=== PATIENT | female | born 1955 | race Caucasian/White ===

== ENCOUNTER → 2016-07-28 | Outpatient (REF) | payer OTHER ==
[~2016-07-28] MED LIST: LEVA500T PO; LIPI20TA PO; PERC5TAB6 PO; PROZ20CA11 PO; SENO8.6T10 PO; TIZA4CAP3 PO; VALT500T PO
== END ==
LOC: M SFHCWAGY 10:27
PROVIDERS: ATTEND Nurse Practitioner Women's Health
DX: Z12.4 Encounter for screening for malignant neoplasm of cervix (principal)

== ENCOUNTER → 2016-07-28 | Outpatient (CLI) | payer OTHER ==
--- NOTE | 2016-07-28 12:12 | REPMRS ---
Patient History The patient states she had a clinical breast exam in 08/09 Patient is postmenopausal and had first child at age 41. Family history of prostate cancer in father at age 50 or over and breast cancer in paternal grandmother at age 50 or over. Digital Woman Screen Mammo: July 28, 2016 - Exam #: [id number] Bilateral CC and MLO view(s) were taken. Technologist: Sona Cobb, Technologist Prior study comparison: July 27, 2015, digital woman screen mammo performed at [facility]. July 18, 2014, digital woman screen mammo performed at [facility]. FINDINGS: The breast tissue is heterogeneously dense. This may lower the sensitivity of mammography. There has been no change in the appearance of the mammogram from the prior studies. There is a moderate amount of residual fibroglandular tissue which is fairly symmetric. There is no interval development of dominant mass, areas of architectural distortion, or clustered microcalcification typical of malignancy. ASSESSMENT: BI-RADS/ACR category 1 mammogram. Negative. Recommendation Routine screening mammogram in 1 year (for women over age 40). This mammogram was interpreted with the aid of an FDA-approved computer-aided dectection system. Electronically Signed By: Tre Lopez MD 07/28/16 [id number]
== END ==
LOC: M WHC 10:30
PROVIDERS: ATTEND Nurse Practitioner Women's Health
DX: Z12.31 Encounter for screening mammogram for malignant neoplasm of breast (principal); Z78.0 Asymptomatic menopausal state; Z13.820 Encounter for screening for osteoporosis

== ENCOUNTER → 2016-09-20 | Outpatient (CLI) | payer OTHER ==
[~2016-09-20] VITALS: Ht 161.3 cm; Wt 68.0 kg
[~2016-09-20] MED LIST changes: +NS 1,000 ML IV SCH; +PROPOFOL 200 MG/20 ML VIAL As Ordered ONE
--- NOTE | 2016-09-20 14:20 | ROOR ---
Patient Name: Rama Navarro Procedure Date: 09/20/2016 2:02 PM Date of : 1955 Age: 60 Room: [facility] Gender: Female Note Status: Finalized Procedure: Colonoscopy Indications: High risk colon cancer surveillance: Personal history of colonic polyps Providers: Babar KLINE MD Referring MD: JOE WAITE MD Requesting Provider: Medicines: Monitored Anesthesia Care Complications: No immediate complications. Procedure: Pre-Anesthesia Assessment: - The heart rate, respiratory rate, oxygen saturations, blood pressure, adequacy of pulmonary ventilation, and response to care were monitored throughout the procedure. The Colonoscope was introduced through the anus and advanced to the cecum, identified by appendiceal orifice and ileocecal valve. The colonoscopy was performed without difficulty. The patient tolerated the procedure well. The quality of the bowel preparation was excellent. Findings: The perianal and digital rectal examinations were normal. (Exam: Complete, Prep: Good or Excellent.) Small Internal Hemorrhoids. The entire examined colon appeared normal on direct and retroflexion views. Impression: - Small Internal Hemorrhoids. - The entire colon is normal on direct and retroflexion views. - No specimens collected. Recommendation: - Repeat colonoscopy in 10 years for screening purposes. Babar Kline MD Babar KLINE MD 09/20/2016 2:19:57 PM This report has been signed electronically. Number of Addenda: 0 Note Initiated On: 09/20/2016 2:02 PM Estimated Blood Loss: Estimated blood loss: none.
[2016-09-20 14:51] VITALS: BP 128/67
== END | disposition home or self-care (01) ==
LOC: M OPP 11:59
PROVIDERS: ATTEND Internal Medicine Gastroenterology
DX: Z12.11 Encounter for screening for malignant neoplasm of colon (principal); Z86.010 Personal history of colon polyps; K64.8 Other hemorrhoids; E78.00 Pure hypercholesterolemia, unspecified; F41.9 Anxiety disorder, unspecified; Z79.899 Other long term (current) drug therapy

== ENCOUNTER → 2017-01-20 | Outpatient (CLI) | payer OTHER ==
[~2017-01-20] MED LIST changes: +LEVA1TAB2 PO; -LEVA500T PO; -NS 1,000 ML IV SCH; +PERC5TAB12 PO; -PERC5TAB6 PO; -PROPOFOL 200 MG/20 ML VIAL As Ordered ONE
== END ==
LOC: M WUC 14:06
PROVIDERS: ATTEND Physician Assistant
DX: Z02.1 Encounter for pre-employment examination (principal)

== ENCOUNTER → 2017-02-20 | Outpatient (REF) | payer OTHER | LOC: M LAB REF 19:41 | PROVIDERS: ATTEND Physician Assistant | DX: J02.9 Acute pharyngitis, unspecified (principal) ==

== ENCOUNTER → 2017-07-31 | Outpatient (CLI) | payer OTHER | LOC: M WHC 10:17 | DX: Z12.31 Encounter for screening mammogram for malignant neoplasm of breast (principal) | CPT/HCPCS: 77067 ==

== ENCOUNTER → 2017-07-31 | Outpatient (REF) | payer OTHER | LOC: M SFHCWAGY 10:26 | DX: Z12.4 Encounter for screening for malignant neoplasm of cervix (principal) | CPT/HCPCS: 88142 ==

== ENCOUNTER → 2018-07-02 | Outpatient (CLI) | payer OTHER ==
[2018-07-02 17:43] LABS: ALBUMIN 4.1 GM/DL (3.2-5.2); ALBUMIN/GLOBULIN RATIO 1.32 (1.00-1.93); ALKALINE PHOSPHATASE 70 U/L (45-117); ALT/SGPT 21 U/L (12-78); ANION GAP 6 MEQ/L (8-16); AST/SGOT 16 U/L (7-37); BILIRUBIN,TOTAL 0.4 MG/DL (0.2-1.0); BLOOD UREA NITROGEN 19 MG/DL (7-18); CALCIUM LEVEL 8.9 MG/DL (8.8-10.2); CARBON DIOXIDE LEVEL 30 MEQ/L (21-32); CHLORIDE LEVEL 103 MEQ/L (98-107); CHOLESTEROL LEVEL 198 MG/DL (<200); CREATININE FOR GFR 0.68 MG/DL (0.55-1.30); GLOMERULAR FILTRATION RATE > 60.0 (>45); GLUCOSE, FASTING 89 MG/DL (70-100); HDL CHOLESTEROL 75 MG/DL (>40); LDL CHOLESTEROL 105 MG/DL (<100); NON-HDL-C 123 MG/DL; POTASSIUM SERUM 4.7 MEQ/L (3.5-5.1); SODIUM LEVEL 139 MEQ/L (136-145); TOTAL PROTEIN 7.2 GM/DL (6.4-8.2); TRIGLYCERIDES LEVEL 90 MG/DL (<150)
== END ==
LOC: M WUC 12:01
DX: E78.5 Hyperlipidemia, unspecified (principal); F41.9 Anxiety disorder, unspecified
CPT/HCPCS: 84443

== ENCOUNTER → 2018-08-01 | Outpatient (CLI) | payer OTHER ==
[~2018-08-01] MED LIST changes: +TIZA4CAP PO; -TIZA4CAP3 PO
--- NOTE | 2018-08-01 13:23 | REPMRS ---
Patient History The patient states she had a clinical breast exam in 07/2018. Patient is postmenopausal and had first child at age 41. Family history of breast cancer at age 50 or over in paternal grandmother, prostate cancer at age 50 or over in father, breast cancer at age 83 in mother. No Hormone Replacement Therapy Digital Woman Screen Mammo: August 01, 2018 - Exam #: [id number] Bilateral CC and MLO view(s) were taken. Technologist: Felisha Peterson, Technologist Prior study comparison: July 31, 2017, digital woman screen mammo performed at [facility]. July 28, 2016, digital woman screen mammo performed at [facility]. July 27, 2015, digital woman screen mammo performed at [facility]. FINDINGS: The breast tissue is heterogeneously dense. This may lower the sensitivity of mammography. There is a moderate amount of heterogeneously dense fibroglandular tissue which is fairly symmetric. There is no interval development of dominant mass, architectural distortion, or clustered microcalcification typical of malignancy. There has been no change in the appearance of the mammogram from the prior studies. 3-D tomosynthesis shows no additional findings. Assessment: BI-RADS/ACR category 1 mammogram. Negative. Recommendation Breast MRI of both breasts in 6 months. Routine screening mammogram of both breasts in 1 year (for women over age 40). This patient's Lifetime Breast Cancer RIsk is estimated at 23.5 %. Annual screening Breast MRI scanniing is recommended for patient's whose lifetime risk assessment is over 20%. This mammogram was interpreted with the aid of an FDA-approved computer-aided dectection system. Electronically Signed By: Bigg Hernandez MD 08/01/18 [id number]
== END ==
LOC: M WHC 10:18
PROVIDERS: ATTEND Nurse Practitioner Women's Health
DX: Z12.31 Encounter for screening mammogram for malignant neoplasm of breast (principal); Z78.0 Asymptomatic menopausal state; Z80.3 Family history of malignant neoplasm of breast

== ENCOUNTER → 2019-03-06 | Outpatient (CLI) | payer OTHER ==
[2019-03-06 15:53] LABS: BLOOD UREA NITROGEN 16 MG/DL (7-18); CARBON DIOXIDE LEVEL 28 MEQ/L (21-32); CHLORIDE LEVEL 106 MEQ/L (98-107); CREATININE FOR GFR 0.63 MG/DL (0.55-1.30); GLOMERULAR FILTRATION RATE > 60.0 (>45); GLUCOSE, FASTING 118 MG/DL (70-100); POTASSIUM SERUM 4.1 MEQ/L (3.5-5.1); SODIUM LEVEL 141 MEQ/L (136-145)
== END ==
LOC: M WUC 10:43
PROVIDERS: ATTEND Nurse Practitioner Women's Health
DX: Z01.812 Encounter for preprocedural laboratory examination (principal)

== ENCOUNTER → 2019-03-11 | Outpatient (CLI) | payer OTHER ==
[~2019-03-11] MED LIST changes: +PROHANCE 279.3MG/ML 15ML VIAL (A9576) As Ordered ONE
--- NOTE | 2019-03-12 10:15 | REP ---
Bilateral breast MRI study without and with IV gadolinium: History: Family history of breast malignancy. High-risk breast cancer screening. Dense breast tissue on mammography. Comparison mammography August 01, 2018. Technique: 3 Mirna MRI imaging was performed with a dedicated breast coil. Axial, coronal, and sagittal T1 and T2-weighted scans were obtained with and without fat saturation in the usual fashion. The study includes dynamically acquired post gadolinium enhanced imaging subtraction imaging. Maximal intensity projection and multiplanar re-formation imaging is included as well. The study was interpreted with the aid of [employer], an FDA approved computer-aided detection (CAD) software program, on a dedicated breast MRI work station. The gadolinium enhancement dose is 13 mL of intravenous ProHance. Findings: There is moderate fibroglandular tissue pattern bilaterally corresponding with the dense breast seen mammographically. There is only minimal background parenchymal enhancement. No axillary adenopathy or significant breast cystic changes seen on either side. High-resolution pre and postcontrast T1 and T2-weighted scans show no suspicious morphologic abnormality in either breast. Dynamically acquired sequential post contrast images show no suspicious area of enhancement and/or washout in either breast to suggest malignancy. Subtraction images are unremarkable. Impression: BI-RADS category 1 negative bilateral breast MRI study. Repeat breast MRI study recommended in 1 year. Electronically Signed by Addi Hernandez MD 03/12/2019 07:09 P
== END ==
LOC: M RAD 15:08
PROVIDERS: ATTEND Nurse Practitioner Women's Health
DX: Z80.9 Family history of malignant neoplasm, unspecified (principal)
CPT/HCPCS: A9576; C8908

== ENCOUNTER → 2019-08-02 | Outpatient (CLI) | payer OTHER ==
[~2019-08-02] MED LIST changes: -PROHANCE 279.3MG/ML 15ML VIAL (A9576) As Ordered ONE
--- NOTE | 2019-08-02 13:32 | REPMRS ---
Patient History The patient states she had a clinical breast exam in 2019. Family history of breast cancer at age 50 or over in paternal grandmother, prostate cancer at age 50 or over in father, breast cancer at age 83 in mother. No Hormone Replacement Therapy Digital Woman Screen Mammo: August 02, 2019 - Exam #: [id number] Bilateral CC and MLO view(s) were taken. Technologist: Nilam Love, Technologist Prior study comparison: August 01, 2018, bilateral digital woman screen mammo performed at [facility]. [facility] 31, 2017[facility], 2016[facility] FINDINGS: The breast tissue is heterogeneously dense. This may lower the sensitivity of mammography. There is a moderate amount of heterogeneously dense fibroglandular tissue which is fairly symmetric. There is no interval development of dominant mass, architectural distortion, or grouped microcalcification typical of malignancy. There has been no change in the appearance of the mammogram from the prior studies. 3-D tomosynthesis shows no additional findings. Assessment: BI-RADS/ACR category 1 mammogram. Negative Mammogram. Recommendation Breast MRI of both breasts in 6 months. Routine screening mammogram of both breasts in 1 year (for women over age 40). This patient's Lifetime Breast Cancer RIsk is estimated at 22.8 %. Annual screening Breast MRI scanniing is recommended for patient's whose lifetime risk assessment is over 20%. This mammogram was interpreted with the aid of an FDA-approved computer-aided dectection system. Electronically Signed By: Bigg Hernandez MD 08/02/19 [id number]
== END ==
LOC: M WHC 10:47
PROVIDERS: ATTEND Nurse Practitioner Women's Health
DX: Z12.31 Encounter for screening mammogram for malignant neoplasm of breast (principal)

== ENCOUNTER → 2019-08-08 | Outpatient (CLI) | payer OTHER ==
[2019-08-08 16:36] LABS: ALT/SGPT 24 U/L (12-78); BILIRUBIN,TOTAL 0.5 MG/DL (0.2-1.0); BLOOD UREA NITROGEN 14 MG/DL (7-18); CALCIUM LEVEL 9.3 MG/DL (8.8-10.2); CARBON DIOXIDE LEVEL 30 MEQ/L (21-32); CHLORIDE LEVEL 106 MEQ/L (98-107); CHOLESTEROL LEVEL 183 MG/DL (<200); CHOLESTEROL RISK RATIO 2.376 (<5); CREATININE FOR GFR 0.66 MG/DL (0.55-1.30); GLOMERULAR FILTRATION RATE > 60.0 (>45); GLUCOSE, FASTING 94 MG/DL (70-100); HDL CHOLESTEROL 77 MG/DL (>40); LDL CHOLESTEROL 85 MG/DL (<100); NON-HDL-C 106 MG/DL; POTASSIUM SERUM 4.5 MEQ/L (3.5-5.1); SODIUM LEVEL 142 MEQ/L (136-145); TOTAL PROTEIN 7.4 GM/DL (6.4-8.2); TRIGLYCERIDES LEVEL 104 MG/DL (<150)
== END ==
LOC: M WUC 11:53
PROVIDERS: ATTEND Internal Medicine
DX: E78.5 Hyperlipidemia, unspecified (principal)

== ENCOUNTER 2019-09-30 23:24 | Emergency (ER) | payer OTHER ==
[~2019-09-30] VITALS: Ht 160 cm; Wt 69.5 kg
--- NOTE | 2019-10-01 00:42 | REPVR ---
PROCEDURE INFORMATION: Exam: CT Head Without Contrast Exam date and time: 09/30/2019 11:46 PM Age: 63 years old Clinical indication: Numbness / parasthesia; Left; Patient HX: Dental pain; Additional info: Lips numb left side TECHNIQUE: Imaging protocol: Computed tomography of the head without contrast. Axial and coronal reformatted images were created and reviewed. Radiation optimization: All CT scans at this facility use at least one of these dose optimization techniques: automated exposure control; mA and/or kV adjustment per patient size (includes targeted exams where dose is matched to clinical indication); or iterative reconstruction. COMPARISON: CT Head without contrast 09/30/2014 6:19 PM FINDINGS: Brain: No CT evidence of acute intracranial hemorrhage or acute territorial infarction. No significant mass effect or midline shift. Basal cisterns patent. Ventricles: Normal in size and configuration. Bones/joints: No acute osseous abnormality. Sinuses: Minimal ethmoid and mild left maxillary sinus mucosal thickening. Mastoid air cells: Grossly unremarkable. Soft tissues: Grossly unremarkable. IMPRESSION: 1. No CT evidence of acute intracranial pathology. 2. Additional findings, as above. Electronically signed by: Herbie Hood On 10/01/2019 00:42:02 AM
[2019-10-01] MEDS ORDERED: carBAMazepine 100 MG *1/2* TAB PO ONE (01:00)
[2019-10-01 02:45] VITALS: BP 146/72
[2019-10-01] MEDS ORDERED: CARB10TACH PO (03:08)
== END 2019-10-01 03:23 | disposition home or self-care (01) ==
LOC: M ED 23:24
DX: G50.0 Trigeminal neuralgia (principal); E78.5 Hyperlipidemia, unspecified; F32.9 Major depressive disorder, single episode, unspecified; F41.9 Anxiety disorder, unspecified; Z79.899 Other long term (current) drug therapy

== ENCOUNTER → 2020-01-14 | Outpatient (REF) | payer OTHER ==
[~2020-01-14] MED LIST changes: +CARB10TACH PO
== END ==
LOC: M LAB REF 17:15
PROVIDERS: ATTEND Physician Assistant
DX: D04.39 Carcinoma in situ of skin of other parts of face (principal)

== ENCOUNTER → 2020-07-03 | Outpatient (CLI) | payer OTHER ==
[~2020-07-03] MED LIST changes: +PROHANCE 279.3MG/ML 15ML VIAL As Ordered ONE
--- NOTE | 2020-07-03 12:52 | REP ---
INDICATION: DENSE BREAST, FAMILY HISTORY. COMPARISON: Comparison breast MRI study March 11, 2019. Comparison mammography August 02, 2019. TECHNIQUE: Three Mirna MRI imaging was performed with a dedicated breast coil. Axial, coronal, and sagittal T1 and T2 weighted scans were obtained with and without fat saturation in the usual fashion. The study includes dynamically acquired post gadolinium-enhanced imaging with image subtraction. Maximum intensity projection and multi planar reformation imaging is included as well. This study is interpreted with the aid of [employer], an FDA approved computer aided detection (CAD) software program, on a dedicated breast MRI workstation. The gadolinium enhancement dose is 13 mL of intravenous ProHance. FINDINGS: There is a moderate pattern of fibroglandular tissue bilaterally. There is mild background parenchymal enhancement. There is no evidence of axillary lymphadenopathy or significant breast cystic change. High-resolution T1 and T2 weighted scans show no suspicious morphologic abnormality in either breast either before after contrast. No suspicious area of enhancement and washout is seen on dynamically acquired sequential postcontrast images. Subtraction images show no additional abnormality. IMPRESSION: Stable BI-RADS category 1-findings. Repeat screening breast MRI study recommended in 1 year. Annual screening mammography should continue as well. <Electronically signed by Bigg Hernandez > 07/03/20 [id number]
== END ==
LOC: M RAD 08:15
PROVIDERS: ATTEND Nurse Practitioner Women's Health
DX: R92.2 Inconclusive mammogram (principal); Z80.3 Family history of malignant neoplasm of breast
CPT/HCPCS: A9576; C8908

== ENCOUNTER → 2020-08-27 | Outpatient (REF) | payer OTHER ==
[~2020-08-27] MED LIST changes: -PROHANCE 279.3MG/ML 15ML VIAL As Ordered ONE
== END ==
LOC: M SFHCWAGY 16:45
PROVIDERS: ATTEND Nurse Practitioner Women's Health
DX: Z12.4 Encounter for screening for malignant neoplasm of cervix (principal); Z01.419 Encounter for gynecological examination (general) (routine) without abnormal findings

== ENCOUNTER 2020-10-28 18:12 | Observation (INO) | payer OTHER ==
[~2020-10-28] VITALS: Ht 160 cm; Wt 68.4 kg
--- NOTE | 2020-10-28 19:02 | REPVR ---
PROCEDURE INFORMATION: Exam: CT Head Without Contrast Exam date and time: 10/28/2020 6:35 PM Age: 64 years old Clinical indication: Pain; Headache; Additional info: Head injury TECHNIQUE: Imaging protocol: Computed tomography of the head without contrast. Radiation optimization: All CT scans at this facility use at least one of these dose optimization techniques: automated exposure control; mA and/or kV adjustment per patient size (includes targeted exams where dose is matched to clinical indication); or iterative reconstruction. COMPARISON: CT Head without contrast 09/30/2019 11:50 PM FINDINGS: Brain: No acute intracranial hemorrhage, cerebral edema, or midline shift. Cerebral ventricles: No hydrocephalus. Bones/joints: No acute fracture. Paranasal sinuses: There is a mucus retention cyst or polyp within the right maxillary sinus. Mastoid air cells: The mastoid air cells are clear. Orbital cavity: Unremarkable as visualized. Soft tissues: Unremarkable. IMPRESSION: No acute intracranial abnormality. Electronically signed by: Adams Rooney On 10/28/2020 19:02:38 PM
--- NOTE | 2020-10-28 19:05 | REPVR ---
PROCEDURE INFORMATION: Exam: CT Cervical Spine Without Contrast Exam date and time: 10/28/2020 6:35 PM Age: 64 years old Clinical indication: Injury or trauma; Fall; Blunt trauma; Additional info: Head injury TECHNIQUE: Imaging protocol: Computed tomography images of the cervical spine without contrast. Radiation optimization: All CT scans at this facility use at least one of these dose optimization techniques: automated exposure control; mA and/or kV adjustment per patient size (includes targeted exams where dose is matched to clinical indication); or iterative reconstruction. COMPARISON: CT Spine,cervical w/o contrast 09/30/2014 6:19 PM FINDINGS: Bones/joints: There is no acute fracture of the cervical spine.There is straightening of the normal cervical lordosis. Other bones: There are acute fractures involving the right 1st and 3rd ribs. Discs/Spinal canal/Neural foramina: Moderate degenerative changes of the cervical spine are present. There is no severe spinal canal stenosis. Multilevel neural foraminal narrowing from uncinate spurring and facet arthropathy is noted. Thyroid: A 2.5 cm right thyroid nodule is noted. Further evaluation with a thyroid ultrasound is recommended. Lungs: Lung apices are normal. Pleural spaces: A tiny left apical pneumothorax is present. Soft tissues: Unremarkable. IMPRESSION: 1. No acute fracture of the cervical spine 2. Acute fractures involving the right 1st and 3rd ribs 3. Tiny left apical pneumothorax COMMENTS: Consistent with the [employer]'s Incidental Findings Committee white paper (J Am Cassandra Radiol 2015): In patients aged 35 years and older with an incidental thyroid nodule equal to or greater than 1.[address], MRI or extrathyroidal US, further evaluation with dedicated thyroid US is recommended for patients with normal life expectancy and without comorbidities. For smaller nodules without suspicious features, no further evaluation or follow up is recommended. Electronically signed by: Adams Rooney On 10/28/2020 19:05:40 PM
[2020-10-28] MEDS ORDERED: ONDANSETRON 4MG/2ML VIAL IV ONE (19:30)
[2020-10-28] MEDS ORDERED: MORPHINE 2 MG/ML 1ML VIAL (J2270) IV ONE (19:30)
[2020-10-28] MEDS: NS 1,000 ML IV SCH (19:56)
[2020-10-28 19:58] LABS: BASO % 0.2 % (0.0-1.0); HEMATOCRIT 37.7 % (36.0-47.0); HEMOGLOBIN 12.2 g/dl (12.0-15.5); LYMPH % 6.6 % (24.0-44.0); MEAN CORPUSCULAR HEMOGLOBIN 29.6 pg (27.0-33.0); MEAN CORPUSCULAR HGB CONC 32.4 g/dl (32.0-36.5); MEAN CORPUSCULAR VOLUME 91.5 fl (80.0-96.0); MONO # 0.7 10^3/uL (0.0-0.8); MONO % 4.5 % (2.0-8.0); NEUTROPHILS # 12.8 10^3/uL (1.5-8.5); NEUTROPHILS % 87.9 % (36.0-66.0); PLATELET COUNT, AUTOMATED 255 10^3/uL (150-450); RED BLOOD COUNT 4.12 10^6/uL (4.00-5.40); WHITE BLOOD COUNT 14.5 10^3/uL (4.0-10.0)
[2020-10-28] MEDS ORDERED: ISOVUE-370 76% 100ML VIAL As Ordered ONE (20:12)
[2020-10-28 20:33] LABS: CK-MB VALUE MASS 10.7 NG/ML (<3.6); CPK CREATINE PHOSPHOKINASE 467 U/L (26-192); MB/CK RELATIVE INDEX 2.29 (< OR =4); TROPONIN I < 0.02 NG/ML (< 0.10)
--- NOTE | 2020-10-28 21:15 | REPVR ---
PROCEDURE INFORMATION: Exam: CT Abdomen And Pelvis With Contrast Exam date and time: 10/28/2020 8:24 PM Age: 64 years old Clinical indication: Abdominal pain; Generalized; Additional info: Trauma TECHNIQUE: Imaging protocol: Computed tomography of the abdomen and pelvis with contrast. Radiation optimization: All CT scans at this facility use at least one of these dose optimization techniques: automated exposure control; mA and/or kV adjustment per patient size (includes targeted exams where dose is matched to clinical indication); or iterative reconstruction. Contrast material: ISOVUE 370; Contrast volume: 100 ml; Contrast route: INTRAVENOUS (IV); COMPARISON: No relevant prior studies available. FINDINGS: Liver: Normal. No mass. Gallbladder and bile ducts: There are multiple small calculi in the gallbladder and cystic duct. No gallbladder wall thickening or pericholecystic fluid. No biliary duct dilation. Pancreas: Normal. No ductal dilation. Spleen: Normal. No splenomegaly. Adrenal glands: Normal. No mass. Kidneys and ureters: Incidental peripelvic cysts in the left kidney left kidney. Kidneys are otherwise unremarkable. No hydronephrosis. Stomach and bowel: Unremarkable. No obstruction. No mucosal thickening. Appendix: No evidence of appendicitis. Intraperitoneal space: Unremarkable. No free air. No significant fluid collection. Vasculature: Unremarkable. No abdominal aortic aneurysm. Lymph nodes: Unremarkable. No enlarged lymph nodes. Urinary bladder: Unremarkable as visualized. Reproductive: Unremarkable as visualized. Bones/joints: There are degenerative changes in the spine and pelvis. Soft tissues: Unremarkable. IMPRESSION: 1. No acute findings. 2. Cholelithiasis. No biliary duct dilation. COMMENTS: Consistent with the [place] [employer]'s Incidental Findings Committee white paper (J Am Cassandra Radiol 2018): Any incidental renal lesion less than 1 cm or classified as too small to characterize, or any incidental cystic renal lesion characterized as simple-appearing, is likely benign. No follow-up imaging is recommended for these lesions per consensus recommendations based on imaging criteria. Electronically signed by: Reinier Dale On 10/28/2020 21:15:57 PM
--- NOTE | 2020-10-28 21:23 | REPVR ---
PROCEDURE INFORMATION: Exam: CT Chest With Contrast; Diagnostic Exam date and time: 10/28/2020 8:24 PM Age: 64 years old Clinical indication: Injury or trauma; Fall; Blunt trauma (contusions or hematomas) TECHNIQUE: Imaging protocol: Diagnostic computed tomography of the chest with contrast. Radiation optimization: All CT scans at this facility use at least one of these dose optimization techniques: automated exposure control; mA and/or kV adjustment per patient size (includes targeted exams where dose is matched to clinical indication); or iterative reconstruction. Contrast material: ISOVUE 370; Contrast volume: 100 ml; Contrast route: INTRAVENOUS (IV); COMPARISON: CT Chest with contrast 09/30/2014 6:22 PM FINDINGS: Thyroid: Nodules in the right lobe of the thyroid gland are not significantly changed. Lungs: Unremarkable. No consolidation. No masses. Pleural spaces: There is a tiny left apical pneumothorax. No pleural effusion. Heart: Unremarkable. No cardiomegaly. No pericardial effusion. Aorta: Unremarkable. No aortic aneurysm. Lymph nodes: Unremarkable. No enlarged lymph nodes. Bones/joints: There are nondisplaced fractures of the right 2nd and 3rd posterior ribs. Soft tissues: Unremarkable. IMPRESSION: 1. Tiny left apical pneumothorax. 2. Right 2nd and 3rd posterior rib fractures. 3. Stable right thyroid nodule. COMMENTS: Consistent with the [place] [employer]'s Incidental Findings Committee white paper (J Am Cassandra Radiol 2015): In patients aged 35 years and older with an incidental thyroid nodule equal to or greater than 1.[address], MRI or extrathyroidal US, further evaluation with dedicated thyroid US is recommended for patients with normal life expectancy and without comorbidities. For smaller nodules without suspicious features, no further evaluation or follow up is recommended. Electronically signed by: Reinier Dale On 10/28/2020 21:23:40 PM
[2020-10-28] MEDS ORDERED: LIDOCAINE W/EPINEPHRINE 1% 20ML VIAL SC ONE (21:30)
[2020-10-28] MEDS ORDERED: CEPHALEXIN 500 MG CAP PO ONE (22:45)
--- NOTE | 2020-10-28 23:29 | REPVR ---
PROCEDURE INFORMATION: Exam: XR Left Finger(s) Exam date and time: 10/28/2020 11:01 PM Age: 64 years old Clinical indication: Pain; Finger(s); Left; Additional info: Left index only, trauma TECHNIQUE: Imaging protocol: XR Left fingers. Views: Minimum 2 views. COMPARISON: CR HAND COMPLETE 12/16/2015 6:31 PM FINDINGS: Bones/joints: There is advanced osteoarthritis in the fingers. Mildly displaced fracture of the dorsal base of the index finger distal phalanx. No other fracture is seen. Normal alignment. Soft tissues: Mild soft tissue swelling. IMPRESSION: 1. Mildly displaced intra-articular fracture of the dorsal base of the index finger distal phalanx. 2. Soft tissue swelling. 3. Osteoarthritis. Electronically signed by: Reinier Dale On 10/28/2020 23:29:36 PM
--- NOTE | 2020-10-28 23:31 | REPVR ---
PROCEDURE INFORMATION: Exam: XR Left Elbow Exam date and time: 10/28/2020 11:01 PM Age: 64 years old Clinical indication: Pain; Elbow; Left; Additional info: Trauma, fell off a horse. TECHNIQUE: Imaging protocol: XR Left elbow. Views: 3 or more views. COMPARISON: No relevant prior studies available. FINDINGS: Bones/joints: There is a small elbow joint effusion. No displaced fracture is seen. Normal alignment. Soft tissues: Unremarkable. IMPRESSION: 1. Small joint effusion. 2. No displaced fracture is seen. Electronically signed by: Reinier Dale On 10/28/2020 23:32:12 PM
[2020-10-28] MEDS ORDERED: ONDANSETRON 4MG/2ML VIAL IV PRN (23:45)
[2020-10-28] MEDS ORDERED: ACETAMINOPHEN TAB 650MG DOSE (2X325MG) PO PRN (23:45)
[2020-10-28] MEDS ORDERED: NORCO, ANEXSIA 5/325MG TABLET (HYDROcodone/ACETAMINOPHEN) PO PRN (23:45)
[2020-10-29] MEDS ORDERED: CENT1TAB9 PO (00:02)
[2020-10-29] MEDS: NS 1,000 ML IV SCH ×2 (01:24→11:47)
[2020-10-29] MEDS: IBUPROFEN 400MG TAB PO PRN ×2 (01:27→10:34)
--- NOTE | 2020-10-29 01:31 | ECGEPIP ---
[facility] - ED Test Date: 2020-10-28 Pat Name: HALEY DARNELL Department: Room: - Gender: Female [employer] Assembler: VANNESA : 1955 Requested By: Gabriel Dave Order Number: [id number] Reading MD: Gabriel Chavira Measurements Intervals [place] Rate: 73 P: 28 CO: 134 QRS: 25 QRSD: 88 T: 42 QT: 416 QTc: 458 Interpretive Statements Normal sinus rhythm Minimal voltage criteria for LVH, may be normal variant ( [employer] product ) Nonspecific ST and T wave abnormality NO PRIORS FOR COMPARISON Electronically Signed on 10-29-2020 1:31:20 EDT by Gabriel Chavira
[2020-10-29 06:00] VITALS: BP 119/60
[2020-10-29] MEDS: CEPHALEXIN 500 MG CAP PO SCH ×2 (06:07→11:47)
[2020-10-29 07:38] LABS: BASO % 0.1 % (0.0-1.0); EOS % 0.1 % (0.0-3.0); HEMOGLOBIN 10.6 g/dl (12.0-15.5); LYMPH # 1.4 10^3/uL (1.5-5.0); LYMPH % 18.3 % (24.0-44.0); MEAN CORPUSCULAR HEMOGLOBIN 29.9 pg (27.0-33.0); MEAN CORPUSCULAR HGB CONC 32.1 g/dl (32.0-36.5); MEAN CORPUSCULAR VOLUME 93.2 fl (80.0-96.0); MONO # 0.6 10^3/uL (0.0-0.8); MONO % 7.2 % (2.0-8.0); NEUTROPHILS # 5.7 10^3/uL (1.5-8.5); PLATELET COUNT, AUTOMATED 218 10^3/uL (150-450); RED BLOOD COUNT 3.54 10^6/uL (4.00-5.40); WHITE BLOOD COUNT 7.7 10^3/uL (4.0-10.0)
--- NOTE | 2020-10-29 08:16 | REP ---
INDICATION: follow possible left pneumothorax. COMPARISON: Chest CT dated 10/28/2020 TECHNIQUE: Single upright PA view of the chest. FINDINGS: Upon review of the comparison CT there is a tiny barely visible pneumothorax in the left apex anteriorly. On the plain film study today there is no visible pneumothorax on the left or the right. There is no hemothorax or pulmonary contusion. There are old healed left rib fractures. No other rib fractures are identified on the plain film study today. Cardiac size is normal. The fiordaliza and mediastinum are unremarkable. IMPRESSION: Essentially negative single AP view of the chest. No pneumothorax is identified, as discussed above. There is no hemothorax or pulmonary contusion. No rib fractures are identified. Cardiac size is normal. The lung potter are otherwise clear. <Electronically signed by Tre Feliciano > 10/29/20 0829
[2020-10-29] MEDS ORDERED: BACITRACIN OINTMENT 30GM TUBE TOP SCH (09:00)
--- NOTE | 2020-10-29 09:26 | HPE ---
HISTORY AND PHYSICAL DATE OF ADMISSION: 10/28/2020 The patient was placed on observation status on the October. REASON FOR OBSERVATION: Right rib fractures and small left pneumothorax status post fall. HISTORY OF PRESENT ILLNESS: The patient is a pleasant 64-year-old woman who was riding a horse in a riding arena on the afternoon of the 28 of October at about 4 p.m. She reports that while she was riding, the horse spooked and she was thrown from the horse at a height of approximately 5-6 feet. She reports landing on the dirt floor of the arena with the right side of her face and shoulder coming down first. She denies any loss of consciousness. She reports that the wind was knocked out of her and she lay there for a few minutes before she got up. She complains of pain in the right shoulder posteriorly below the shoulder blade. She has also noticed some swelling of her left index finger and had lacerations of her right ear and left elbow. She underwent evaluation with x-rays and laboratory studies in the emergency department. The CT scan of the neck and chest show fractures of the right 1st and 3rd ribs as well as a possible very small pneumothorax at the apex of the left lung. The patient is now placed on observation for pain control and monitoring of her condition to be watchful for any as yet undiagnosed injuries and to obtain a followup chest x-ray to assess possible expansion of her pneumothorax. ALLERGIES: The patient has no known drug allergies. MEDICATIONS: Include atorvastatin, fluoxetine, a multivitamin and Valtrex. SURGICAL HISTORY: Significant for a section many years ago. She has had a skin cancer removed from the face. MEDICAL HISTORY: Significant for some hypercholesterolemia. She has a distant history of renal stones. She has had some osteoarthritis. She has a history of some anxiety and panic disorder. SOCIAL HISTORY: The patient is . She denies any smoking and drinks alcohol infrequently. FAMILY HISTORY: Noncontributory. REVIEW OF SYSTEMS: Reveals no history of chest pain or palpitations. She denies shortness of breath, cough or wheezing. She denies dysuria or hematuria. She has no history of melena, hematochezia, hepatitis, pancreatitis or jaundice. There is no history of peptic ulcer disease. She has no history of deep vein thrombosis (DVT) or pulmonary embolus. PHYSICAL EXAMINATION: Physical examination in the emergency department revealed that her most recent temperature was 97.4. Her most recent vital signs showed a pulse of 61, blood pressure of 159/69 and her pulse oximetry on room air was 96%. The patient is sitting up on the stretcher looking quite comfortable at the moment. She reports her pain is about a 5/10. Skin is warm and dry. She has a small amount of dried blood on the right side of the neck and a sutured laceration at the top of the right ear about 2 cm in length. The sclerae are anicteric. There is no evidence of facial fracture. The jaw is stable. The neck is without swelling. She has no cervical bruits. Clavicles are intact and nontender to palpation. Heart examination shows a regular rate and rhythm. The lungs are clear to auscultation bilaterally. She has a roughly 1.5 cm sutured laceration at the tip of her left elbow. She has some swelling of the index finger of the left hand particularly around the proximal interphalangeal joint. There are no other evident abnormalities of the hands or fingers. She has palpable radial pulses bilaterally. Abdomen shows no evidence of trauma. She has bowel sounds present and the abdomen is soft and nontender. The pelvis is stable to compression. She has a bruised area on the left martínez about 10-12 cm in diameter. There is no evidence of any skin break or bony injury. She has dorsalis pedis pulses bilaterally. LABORATORY STUDIES: Include a CBC showing a white count of 14, hemoglobin 12, hematocrit 38 and a platelet count of 255,000. Differential count shows 88% neutrophils, 7% lymphocytes and 4% monocytes. Chemistry profile: She had a CK of 467 with a troponin of less than 0.02. She had a [id number] medical profile that showed sodium 140, potassium 3.6, chloride 101, CO2 of 28, BUN of 20, creatinine 0.7 and a glucose of 111. Hematocrit was 39%. Respiratory panel was negative for COVID-19. IMAGING: She had a CT scan of the head, CT scan of the cervical spine, CT scan of the chest, and a CT scan of the abdomen and pelvis. The head CT showed no evidence of injury. The cervical spine CT showed fractures of the right 1st and 3rd ribs with a suggestion of a possible minimal, small bubble of air in the left lung apex. Her abdominal CT showed multiple gallstones with no gallbladder wall thickening or pericholecystic fluid. There was no evidence of any intraabdominal trauma. There was no free air or free fluid, and no evidence of solid organ injury. Her CT scan of the chest revealed a tiny left apical pneumothorax with right ____ and 3rd posterior rib fractures, and a stable right thyroid nodule. She has subsequently an x-ray of the left index finger and the left elbow with reports currently pending. IMPRESSION: 1. Possible tiny left apical pneumothorax. 2. Fractures, right 1st and 3rd ribs posteriorly. 3. Laceration of right ear and left elbow. 4. Possible fracture, left index finger. 5. Hyperlipidemia. PLAN: The patient will be placed on observation status tonight. She will be provided with oral pain medications as needed. She will be allowed to take a diet if she so desires. She will be allowed out of bed with assistance. A repeat chest x-ray will be obtained in the morning to follow up on her tiny apical pneumothorax on the left. We will change her wound dressings daily with some bacitracin ointment. I will also keep her on some Keflex for now for coverage of the wounds that were closed.
[2020-10-29 10:00] VITALS: BP 117/59
[2020-10-29 14:00] VITALS: BP 126/62
[2020-10-29] MEDS ORDERED: CEPH500C PO (16:59)
[2020-10-29 18:00] VITALS: BP 133/64
--- NOTE | 2020-10-29 22:14 | IPN ---
PROGRESS NOTE DATE: 10/29/2020 HISTORY: The patient was thrown from a horse late yesterday afternoon and was brought to the Emergency Department after this fall. She was found to have fractures of the right first and third ribs posteriorly. She had a possible tiny left apical pneumothorax. She had a small fracture in her left index finger with some swelling as well as a laceration of her left elbow and her right ear. She was admitted on observation overnight to obtain a chest x-ray today. She reports that she feels sore but has been taking only some Tylenol for her discomfort. She did have one dose of Ibuprofen earlier in the day. She has been eating well and voiding without difficulty. Vital signs show that she has been afebrile since entering the hospital last evening. Her pulse is in the 50's to 70's and her blood pressure is excellent. Intake and output shows that she has had 1,200 mL of oral intake today with one liter of urine. OBJECTIVE: PHYSICAL EXAMINATION: GENERAL APPEARANCE: She is awake and alert and smiling. She appears quite comfortable. HEENT: Her ear laceration appears dry and well approximated. HEART: Regular rate and rhythm. LUNGS: Clear. ABDOMEN: Soft. EXTREMITIES: Likewise the laceration on the tip of her left elbow looks clean and dry. She still has some swelling of the left index finger with a metal cage splint on that finger. LABORATORY STUDIES: She had a CBC this morning which showed a white count of 8, hemoglobin of 11, hematocrit 33 and a platelet count of 218,000. IMAGING: A chest x-ray this morning showed no evidence of pneumothorax and no evidence of pulmonary infiltrate on either side. IMPRESSION: The patient is doing very well with little discomfort and no evidence of any new previously undiagnosed injuries. PLAN: The patient will be discharged home today. She was counseled to avoid any strenuous physical activity for the first week or two but can do light activities as tolerated. She can eat whatever she is comfortable with. She can shower and can take the splint off her finger long enough for this. I will check with one of the orthopedists regarding her need for follow up. I will provide her a prescription for Keflex for 3 days to try to prophylax her incisions. She will follow up with me in the office in a week for suture removal and routine follow up. She can call the office for any problems. DAYANA
== END 2020-10-29 20:30 | disposition home or self-care (01) ==
LOC: M ED 18:12 → M ED INP 18:13 → ENRESERV 10-29 00:06 → M MSPAV 10-29 01:23
PROVIDERS: ADMIT Surgery; ATTEND Surgery
DX: S22.41XA Multiple fractures of ribs, right side, initial encounter for closed fracture (principal); S01.311A Laceration without foreign body of right ear, initial encounter; S51.012A Laceration without foreign body of left elbow, initial encounter; S62.661A Nondisplaced fracture of distal phalanx of left index finger, initial encounter for closed fracture; M25.011 Hemarthrosis, right shoulder; V80.010A Animal-rider injured by fall from or being thrown from horse in noncollision accident, initial encounter; Y93.52 Activity, horseback riding; Y92.838 Other recreation area as the place of occurrence of the external cause; Y99.9 Unspecified external cause status; E78.49 Other hyperlipidemia; Z79.899 Other long term (current) drug therapy; F41.9 Anxiety disorder, unspecified; Z91.81 History of falling
CPT/HCPCS: 12001; 12011; 29130; 36415; 70450; 71045; 71260; 72125; 73080; 73140; 74177; 80047; 82550; 82553; 85025; 86850; 86900; 86901; 87798; 93005; 96361; 96372; 96374; 96375; 99285; J2270; J2405; Q9967

== ENCOUNTER → 2021-01-11 | Outpatient (CLI) | payer OTHER ==
[~2021-01-11] MED LIST changes: +CENT1TAB9 PO; +CEPH500C PO
--- NOTE | 2021-01-11 14:00 | REPMRS ---
Patient History The patient states she had a clinical breast exam in August 2020. Family history of breast cancer at age 50 or over in paternal grandmother, prostate cancer at age 50 or over in father, breast cancer at age 83 in mother. No Hormone Replacement Therapy Pt unable to remember when she had her covid vaccines but does know that she had them in her left arm. 15 lb unintentional weight gain. Patient states no breast complaints today. Patient has signed MRS History Sheet. Digital Woman Screen Mammo: January 11, 2021 - Exam #: [id number] Bilateral CC and MLO view(s) were taken. Technologist: RT Ian Prior study comparison: August 02, 2019, bilateral digital woman screen mammo performed at [facility]. August 01, 2018, bilateral digital woman screen mammo performed at [facility]. July 31, 2017, digital woman screen mammo performed at [facility]. FINDINGS: There are scattered fibroglandular densities. The Volpara volumetric breast density category is:B. There has been no change in the appearance of the mammogram from the prior studies. There is a mild amount of scattered fibroglandular density which is fairly symmetric. There is no interval development of dominant mass, architectural distortion, or grouped microcalcification suggestive of malignancy. 3-D tomosynthesis shows no additional findings. Assessment: BI-RADS/ACR category 1 mammogram. Negative Mammogram. Recommendation Breast MRI of both breasts in 6 months. Routine screening mammogram of both breasts in 1 year (for women over age 40). This patient's [facility] Lifetime Breast Cancer Risk is estimated at 21.3 %. Patients whose estimated lifetime breast cancer risk assessment is greater than 20% merit annual screening breast MRI scanning in addition to annual mammography. This mammogram was interpreted with the aid of an FDA-approved computer-aided dectection system. Electronically Signed By: Bigg Hernandez MD 01/11/21 [id number]
== END ==
LOC: M WHC 13:00
PROVIDERS: ATTEND Nurse Practitioner Women's Health
DX: Z12.31 Encounter for screening mammogram for malignant neoplasm of breast (principal); Z80.3 Family history of malignant neoplasm of breast

== ENCOUNTER → 2021-07-07 | Outpatient (CLI) | payer OTHER | LOC: M LABSMTC 13:10 | PROVIDERS: ATTEND Pediatrics | DX: Z11.52 Encounter for screening for COVID-19 (principal) | CPT/HCPCS: C9803; U0003 ==

== ENCOUNTER → 2022-01-05 | Outpatient (CLI) | payer OTHER ==
[2022-01-05 17:10] LABS: ALBUMIN 3.9 GM/DL (3.2-5.2); ALT/SGPT 24 U/L (12-78); BILIRUBIN,TOTAL 0.5 MG/DL (0.2-1.0); BLOOD UREA NITROGEN 15 MG/DL (7-18); CARBON DIOXIDE LEVEL 32 MEQ/L (21-32); CHLORIDE LEVEL 107 MEQ/L (98-107); CHOLESTEROL LEVEL 189 MG/DL (<200); CREATININE FOR GFR 0.57 MG/DL (0.55-1.30); GLOMERULAR FILTRATION RATE > 60.0 (>45); GLUCOSE, FASTING 92 MG/DL (70-100); HDL CHOLESTEROL 67 MG/DL (>40); LDL CHOLESTEROL 94 MG/DL (<100); NON-HDL-C 122 MG/DL; POTASSIUM SERUM 4.4 MEQ/L (3.5-5.1); SODIUM LEVEL 143 MEQ/L (136-145); TOTAL PROTEIN 7.1 GM/DL (6.4-8.2); TRIGLYCERIDES LEVEL 141 MG/DL (<150)
== END ==
LOC: M WUC 14:48
PROVIDERS: ATTEND Internal Medicine
DX: E78.5 Hyperlipidemia, unspecified (principal); H25.22 Age-related cataract, morgagnian type, left eye

== ENCOUNTER → 2022-01-31 | Outpatient (CLI) | payer OTHER | LOC: M WHC 14:57 | PROVIDERS: ATTEND Internal Medicine | DX: Z12.31 Encounter for screening mammogram for malignant neoplasm of breast (principal); Z78.0 Asymptomatic menopausal state; Z80.3 Family history of malignant neoplasm of breast; Z80.42 Family history of malignant neoplasm of prostate ==

== ENCOUNTER → 2022-07-13 | Outpatient (CLI) | payer OTHER ==
[2022-07-13 18:04] LABS: ALBUMIN 4.2 G/DL (3.2-5.2); ALKALINE PHOSPHATASE 78 U/L (46-116); ALT/SGPT 13 U/L (7.0-40); AST/SGOT 16 U/L (<34); BILIRUBIN,TOTAL 0.7 MG/DL (0.3-1.2); BLOOD UREA NITROGEN 14 MG/DL (9-23); CALCIUM LEVEL 9.8 MG/DL (8.3-10.6); CARBON DIOXIDE LEVEL 31 MMOL/L (20-31); CHLORIDE LEVEL 102 MMOL/L (98-107); CHOLESTEROL LEVEL 136 MG/DL (<200); CHOLESTEROL RISK RATIO 2.38 (<5); CREATININE FOR GFR 0.65 MG/DL (0.55-1.30); GLOMERULAR FILTRATION RATE > 60.0 (>45); GLUCOSE, FASTING 98 MG/DL (74-106); HDL CHOLESTEROL 57.1 MG/DL (>40); LDL CHOLESTEROL 63.3 MG/DL (<100); NON-HDL-C 79 MG/DL; SODIUM LEVEL 142 MMOL/L (136-145); TOTAL PROTEIN 7.1 G/DL (5.7-8.2); TRIGLYCERIDES LEVEL 78 MG/DL (<150)
== END ==
LOC: M WUC 10:19
PROVIDERS: ATTEND Internal Medicine
DX: E78.5 Hyperlipidemia, unspecified (principal); F41.9 Anxiety disorder, unspecified

== ENCOUNTER → 2022-08-06 | Outpatient (CLI) | payer OTHER | LOC: M RAD 15:12 | PROVIDERS: ATTEND Physician Assistant Surgical | DX: M54.2 Cervicalgia (principal); E07.9 Disorder of thyroid, unspecified ==

== ENCOUNTER → 2022-10-25 | Outpatient (CLI) | payer OTHER | LOC: M WUC 15:24 | PROVIDERS: ATTEND Internal Medicine | DX: M54.12 Radiculopathy, cervical region (principal); D44.0 Neoplasm of uncertain behavior of thyroid gland ==

== ENCOUNTER → 2022-11-04 | Outpatient (CLI) | payer OTHER ==
[2022-11-04 08:53] LABS: PLATELET COUNT, AUTOMATED 235 10^3/uL (150-450)
[2022-11-04 09:05] LABS: INR 0.93; PARTIAL THROMBOPLASTIN TIME 29.7 SECONDS (24.8-34.2); PROTHROMBIN TIME 12.7 SECONDS (12.5-14.5)
[2022-11-04 09:16] LABS: COLLAGEN EPINEPHRINE 126 SECONDS (74-162)
== END ==
LOC: M LAB 08:16
PROVIDERS: ATTEND Physician Assistant Surgical
DX: Z01.818 Encounter for other preprocedural examination (principal); Z79.899 Other long term (current) drug therapy

== ENCOUNTER → 2022-11-17 | Outpatient (CLI) | payer OTHER | LOC: M WHC 15:18 | PROVIDERS: ATTEND Internal Medicine | DX: D44.0 Neoplasm of uncertain behavior of thyroid gland (principal); E07.89 Other specified disorders of thyroid ==

== ENCOUNTER → 2022-12-30 | Outpatient (CLI) | payer MEDICARE, OTHER ==
[2022-12-30 20:36] LABS: ALBUMIN 4.3 G/DL (3.2-5.2); ALKALINE PHOSPHATASE 77 U/L (46-116); ALT/SGPT 18 U/L (7.0-40); AST/SGOT 21 U/L (<34); BILIRUBIN,TOTAL 0.6 MG/DL (0.3-1.2); BLOOD UREA NITROGEN 12 MG/DL (9-23); CALCIUM LEVEL 9.1 MG/DL (8.3-10.6); CARBON DIOXIDE LEVEL 32 MMOL/L (20-31); CHLORIDE LEVEL 103 MMOL/L (98-107); CHOLESTEROL LEVEL 213 MG/DL (<200); CHOLESTEROL RISK RATIO 3.23 (<5); CREATININE FOR GFR 0.68 MG/DL (0.55-1.30); GLOMERULAR FILTRATION RATE > 60.0 (>45); GLUCOSE, FASTING 83 MG/DL (74-106); HDL CHOLESTEROL 65.9 MG/DL (>40); LDL CHOLESTEROL 119.1 MG/DL (<100); NON-HDL-C 147.1 MG/DL; POTASSIUM SERUM 3.9 MMOL/L (3.5-5.1); SODIUM LEVEL 142 MMOL/L (136-145); TOTAL PROTEIN 6.8 G/DL (5.7-8.2); TRIGLYCERIDES LEVEL 140 MG/DL (<150)
== END ==
LOC: M WUC 11:00
PROVIDERS: ATTEND Internal Medicine
DX: E78.5 Hyperlipidemia, unspecified (principal)

== ENCOUNTER → 2023-01-12 | Outpatient (REF) | payer MEDICARE, OTHER | LOC: M LAB REF 17:52 | PROVIDERS: ATTEND Internal Medicine Endocrinology, Diabetes & Metabolism | DX: E04.2 Nontoxic multinodular goiter (principal) ==

== ENCOUNTER → 2023-03-30 | Outpatient (CLI) | payer MEDICARE, OTHER | LOC: M WUC 13:40 | PROVIDERS: ATTEND Physician Assistant | DX: S60.221A Contusion of right hand, initial encounter (principal); M85.841 Other specified disorders of bone density and structure, right hand; Y93.9 Activity, unspecified; Y92.9 Unspecified place or not applicable ==

== ENCOUNTER → 2023-09-07 | Outpatient (CLI) | payer MEDICARE | LOC: M WHC 15:03 | PROVIDERS: ATTEND Nurse Practitioner Family | DX: Z12.31 Encounter for screening mammogram for malignant neoplasm of breast (principal) ==

== ENCOUNTER → 2023-09-07 | Outpatient (CLI) | payer MEDICARE ==
[2023-09-07 16:58] LABS: BASO % 1.1 % (0.0-1.0); EOS % 0.8 % (0.0-3.0); HEMATOCRIT 37.3 % (36.0-47.0); LYMPH # 1.4 10^3/uL (1.5-5.0); LYMPH % 36.7 % (24.0-44.0); MEAN CORPUSCULAR HGB CONC 32.2 g/dl (32.0-36.5); MEAN CORPUSCULAR VOLUME 93.3 fl (80.0-96.0); MONO # 0.3 10^3/uL (0.0-0.8); MONO % 7.4 % (2.0-8.0); NEUTROPHILS % 53.7 % (36.0-66.0); PLATELET COUNT, AUTOMATED 239 10^3/uL (150-450); WHITE BLOOD COUNT 3.8 10^3/uL (4.0-10.0)
[2023-09-07 17:22] LABS: ALBUMIN 3.9 G/DL (3.2-5.2); ALKALINE PHOSPHATASE 77 U/L (46-116); ALT/SGPT 22 U/L (7.0-40); AST/SGOT 17 U/L (<34); BILIRUBIN,TOTAL 0.2 MG/DL (0.3-1.2); BLOOD UREA NITROGEN 15 MG/DL (9-23); CALCIUM LEVEL 8.7 MG/DL (8.3-10.6); CARBON DIOXIDE LEVEL 32 MMOL/L (20-31); CHLORIDE LEVEL 107 MMOL/L (98-107); CHOLESTEROL LEVEL 208 MG/DL (<200); CHOLESTEROL RISK RATIO 2.94 (<5); CREATININE FOR GFR 0.59 MG/DL (0.55-1.30); GLOMERULAR FILTRATION RATE > 60.0 (>45); GLUCOSE, FASTING 94 MG/DL (74-106); HDL CHOLESTEROL 70.6 MG/DL (>40); LDL CHOLESTEROL 114.4 MG/DL (<100); NON-HDL-C 137.4 MG/DL; POTASSIUM SERUM 4.3 MMOL/L (3.5-5.1); SODIUM LEVEL 142 MMOL/L (136-145); TOTAL PROTEIN 6.6 G/DL (5.7-8.2); TRIGLYCERIDES LEVEL 115 MG/DL (<150)
== END ==
LOC: M WUC 12:41
PROVIDERS: ATTEND Internal Medicine
DX: E78.5 Hyperlipidemia, unspecified (principal); G50.0 Trigeminal neuralgia; Z12.31 Encounter for screening mammogram for malignant neoplasm of breast

== ENCOUNTER → 2023-09-07 | Outpatient (REF) | payer MEDICARE | LOC: M SFHCWAGY 10:19 | PROVIDERS: ATTEND Nurse Practitioner Family | DX: Z12.4 Encounter for screening for malignant neoplasm of cervix (principal) | CPT/HCPCS: 87624; G0123 ==

== ENCOUNTER → 2024-04-03 | Outpatient (CLI) | payer MEDICARE | LOC: M SOG 07:53 | PROVIDERS: ATTEND Orthopaedic Surgery | DX: M25.562 Pain in left knee (principal) ==

== ENCOUNTER → 2024-04-03 | Outpatient (CLI) | payer MEDICARE ==
[2024-04-03 18:21] LABS: ALKALINE PHOSPHATASE 88 U/L (46-116); ALT/SGPT 26 U/L (7.0-40); AST/SGOT 17 U/L (<34); BILIRUBIN,TOTAL 0.4 MG/DL (0.3-1.2); BLOOD UREA NITROGEN 19 MG/DL (9-23); CALCIUM LEVEL 9.8 MG/DL (8.3-10.6); CARBON DIOXIDE LEVEL 32 MMOL/L (20-31); CHLORIDE LEVEL 105 MMOL/L (98-107); CHOLESTEROL LEVEL 152 MG/DL (<200); CHOLESTEROL RISK RATIO 2.45 (<5); CREATININE FOR GFR 0.67 MG/DL (0.55-1.30); GLOMERULAR FILTRATION RATE > 60.0 (>45); HDL CHOLESTEROL 61.9 MG/DL (>40); LDL CHOLESTEROL 71.5 MG/DL (<100); NON-HDL-C 90.1 MG/DL; POTASSIUM SERUM 3.9 MMOL/L (3.5-5.1); SODIUM LEVEL 142 MMOL/L (136-145); TOTAL PROTEIN 6.7 G/DL (5.7-8.2); TRIGLYCERIDES LEVEL 93 MG/DL (<150)
[2024-04-04 07:07] LABS: GLUCOSE, FASTING 84 MG/DL (74-106)
== END ==
LOC: M WUC 11:32
PROVIDERS: ATTEND Internal Medicine
DX: E78.5 Hyperlipidemia, unspecified (principal); G50.0 Trigeminal neuralgia

== ENCOUNTER → 2024-04-10 | Outpatient (CLI) | payer MEDICARE | LOC: M WUC 15:05 | PROVIDERS: ATTEND Internal Medicine | DX: G50.0 Trigeminal neuralgia (principal) ==

== ENCOUNTER → 2025-04-17 | Outpatient (CLI) | payer MEDICARE ==
[~2025-04-17] MED LIST changes: -PROZ20CA11 PO; +PROZ20CA12 PO
[2025-04-17 14:36] LABS: ALT/SGPT 23 U/L (7.0-40); AST/SGOT 18 U/L (<34); CALCIUM LEVEL 9.1 MG/DL (8.3-10.6); CARBON DIOXIDE LEVEL 32 MMOL/L (20-31); CHLORIDE LEVEL 103 MMOL/L (98-107); CHOLESTEROL LEVEL 219 MG/DL (<200); CHOLESTEROL RISK RATIO 2.96 (<5); CREATININE FOR GFR 0.57 MG/DL (0.55-1.30); GLOMERULAR FILTRATION RATE > 90.0 (>45); LDL CHOLESTEROL 112.6 MG/DL (<100); NON-HDL-C 145.2 MG/DL; POTASSIUM SERUM 4.1 MMOL/L (3.5-5.1); SODIUM LEVEL 141 MMOL/L (136-145); TRIGLYCERIDES LEVEL 163 MG/DL (<150)
== END ==
LOC: M WUC 11:49
PROVIDERS: ATTEND Internal Medicine
DX: E78.5 Hyperlipidemia, unspecified (principal); G50.0 Trigeminal neuralgia

== ENCOUNTER → 2025-06-10 | Outpatient (CLI) | payer MEDICARE | LOC: M WUC 11:44 | PROVIDERS: ATTEND Internal Medicine | DX: J09.X1 Influenza due to identified novel influenza A virus with pneumonia (principal) ==